=== PATIENT | female | born 1980 | race African-American/Black ===

== ENCOUNTER 2016-08-18 08:29 | Emergency (ER) | payer MEDICAID, OTHER ==
[~2016-08-18] VITALS: Ht 157.5 cm; Wt 68.0 kg
[~2016-08-18 08:29] MED LIST: AMOX875T PO; COMPTAB16 PO; FLUT50SP EACH NARE; HYDR-3533 PO; PRIL40CA PO
[2016-08-18 08:34] VITALS: BP 131/83; PULSE 57; RESP 16; TEMP 98.1; O2SAT 99
[2016-08-18] MEDS ORDERED: EMTRTAB6 PO (08:58)
[2016-08-18] MEDS ORDERED: PROPARACAINE HCL 0.5% OPHT SOLN 15 ML BTL EACH EYE ONE (09:00)
[2016-08-18] MEDS ORDERED: TOBRO RIGHT EYE (09:23)
--- NOTE | 2016-08-18 09:23 | PD ---
HPI Chief Complaint: Eye Problems/Injury Time Seen by Provider: 08:54 Travel History International Travel<30 days: No Contact w/Intl Traveler<30days: No Traveled to known affect area: No History of Present Illness HPI 36-year-old female complains of right eye pain and discharge and redness. Patient states that she woke up this morning with the symptoms. Patient states that the eye pain is mild aching pain. Patient denies any visual change. Patient states that she has tearing from the right eye this morning. Patient denies any coughing congestion fever chills. PFSH Past Medical History Asthma: No Blood Disorders: No Heart Rhythm Problems: No Cancer: No Cardiovascular Problems: No High Cholesterol: No Chemotherapy: No Chest Pain: No Congestive Heart Failure: No COPD: No Diabetes: No Diminished Hearing: No Endocrine: No Gastrointestinal Disorders: No Genitourinary: No Hypertension: No Immune Disorder: Yes (HIV POSITIVE) Implanted Vascular Access Dvce: No Musculoskeletal: No Neurologic: No Psychiatric: No Reproductive: No Respiratory: No Immunizations Current: Yes Radiation Therapy: No Sleep Apnea: No Thyroid Disease: No Tetanus Vaccination: Unknown Influenza Vaccination: No ?: Not Past Surgical History Section: Yes (x 1) Gynecologic Surgery: Yes () Other Surgery: Yes (C SECTION X1) Social History Alcohol Use: No Tobacco Use: No Substance Use: No Allergies-Medications (Allergen,Severity, Reaction): Coded Allergies: No Known Allergies (Verified , 08/18/16) Reported Meds & Prescriptions Reported Meds & Active Scripts Active Tobradex Opth Drops (Tobramycin/Dexamethasone) 0.3-0.1 % Susp 1 Drop RIGHT EYE Q6H Reported Complera (Eqmzpcorexjle-Doxkcshcpkw-Lmeapwsbu Disoprox) 200-25-300 Mg Tab 1 Tab PO HS Review of Systems General / Constitutional: No: Fever Eyes: Positive: Pain, Tearing, No: Visual changes HENT: No: Headaches Cardiovascular: No: Chest Pain or Discomfort Respiratory: No: Shortness of Breath Gastrointestinal: No: Abdominal Pain Genitourinary: No: Dysuria Musculoskeletal: No: Pain Skin: No Rash Neurologic: No: Weakness Psychiatric: No: Depression Endocrine: No: Polydipsia Hematologic/Lymphatic: No: Easy Bruising Physical Exam Narrative GENERAL: Well-nourished, well-developed patient. SKIN: Focused skin assessment warm/dry. HEAD: Normocephalic. EYES: Right conjunctival mild erythematous. Patient has mild right conjunctival edema. Right eye stained with fluoresceins stain shows no uptake. Zana-Pen pressure 15 on the right eye. Neck: Supple. CARDIOVASCULAR: Regular rate and rhythm without murmurs, gallops, or rubs. RESPIRATORY: Breath sounds equal bilaterally. No accessory muscle use. GASTROINTESTINAL: Abdomen soft, non-tender, nondistended. MUSCULOSKELETAL: No cyanosis, or edema. BACK: Nontender without obvious deformity. No CVA tenderness. Data Data Last Documented VS Vital Signs Date Time Temp Pulse Resp B/P Pulse Ox O2 Delivery O2 Flow Rate FiO2 08/18/16 08:49 57 16 08/18/16 08:34 98.1 131/83 99 Orders Proparacaine 0.5% Opth Soln (Alcaine 0.5 (08/18/16 09:00) MDM Medical Decision Making Medical Screen Exam Complete: Yes Emergency Medical Condition: Yes Differential Diagnosis Differential diagnosis including conjunctivitis, corneal abrasion, corneal ulcer , keratitis, iritis uveitis. Narrative Course 36-year-old female with redness and tearing and right eye pain. Diagnosis Primary Impression: Conjunctivitis Qualified Code: B30.9 - Acute viral conjunctivitis of right eye Additional Instructions: Eyedrop as directed. Follow-up with information technology security analyst. Return if worse. Med/Other Pt SpecificInfo: Prescription(s) given Scripts Tobramycin-Dexamethasone Opth Drops (Tobradex Opth Drops)0.3-0.1 % Susp1 Drop RIGHT EYE Q6H #1 BOTTLE Ref 0 Prov:Anant Nolen MD 08/18/16 Disposition: 01 DISCHARGE HOME Condition: Stable Anant Nolen MD Aug 18, 2016 09:23
== END 2016-08-18 09:34 | disposition home or self-care (01) ==
LOC: PHED 08:29
DX: B30.9 Viral conjunctivitis, unspecified (principal); Z21 Asymptomatic human immunodeficiency virus [HIV] infection status
CPT/HCPCS: 99283

== ENCOUNTER 2016-10-05 19:49 | Emergency (ER) | payer MEDICAID, OTHER ==
[~2016-10-05] VITALS: Ht 167.6 cm; Wt 68.5 kg
[~2016-10-05 19:49] MED LIST changes: -AMOX875T PO; -COMPTAB16 PO; +EMTRTAB6 PO; -FLUT50SP EACH NARE; -HYDR-3533 PO; -PRIL40CA PO; +TOBRO RIGHT EYE
[2016-10-05 20:07] VITALS: BP 128/83; PULSE 65; RESP 18; TEMP 98.4; O2SAT 100
[2016-10-05] MEDS ORDERED: DOXY100C PO (20:35)
[2016-10-05] MEDS ORDERED: BACT800T5 PO (20:35)
--- NOTE | 2016-10-05 20:37 | PD ---
HPI Chief Complaint: Skin Problem Time Seen by Provider: 20:15 Travel History International Travel<30 days: No Contact w/Intl Traveler<30days: No Traveled to known affect area: No History of Present Illness HPI 36-year-old female with a history of HIV presents to the emergency room for evaluation of painful, red lesion to her left lower extremity. Patient states she first noticed it 3 days ago as a small blister. She thought she may have gotten bitten by a bug. It increased in size and became more painful until it popped. After popping, the pain went away. Now it only hurts when she touches it. She has not been taking anything or applying anything to the area. Viral load is undetectable. She does not know her CD4 count. Denies fever, chills, nausea, and vomiting. PFSH Past Medical History Asthma: No Blood Disorders: No Heart Rhythm Problems: No Cancer: No Cardiovascular Problems: No High Cholesterol: No Chemotherapy: No Chest Pain: No Congestive Heart Failure: No COPD: No Diabetes: No Diminished Hearing: No Endocrine: No Gastrointestinal Disorders: No Genitourinary: No Hypertension: No Immune Disorder: Yes (HIV POSITIVE) Implanted Vascular Access Dvce: No Musculoskeletal: No Neurologic: No Psychiatric: No Reproductive: No Respiratory: No Immunizations Current: Yes Radiation Therapy: No Sleep Apnea: No Thyroid Disease: No Tetanus Vaccination: > 5 Years Influenza Vaccination: No ?: Not Past Surgical History Section: Yes (x 1) Gynecologic Surgery: Yes () Other Surgery: Yes (C SECTION X1) Social History Alcohol Use: No Tobacco Use: No Substance Use: No Allergies-Medications (Allergen,Severity, Reaction): Coded Allergies: No Known Allergies (Verified , 10/05/16) Reported Meds & Prescriptions Reported Meds & Active Scripts Active Bactrim DS (Sulfamethoxazole-Trimethoprim) 800-160 Mg Tab 1 Tab PO BID Doxycycline Hyclate 100 Mg Cap 100 Mg PO BID 10 Days Reported Complera (Fbgxaoctbltnf-Bynmmcltryg-Uphgjzoft Disoprox) 200-25-300 Mg Tab 1 Tab PO HS Review of Systems Except as stated in HPI: all other systems reviewed are Neg Physical Exam Narrative GENERAL: Well-nourished, well-developed female in no acute distress. Afebrile. Ambulatory. SKIN: Focused skin assessment warm/dry. There is an indurated area in the left lower extremity which measures about 1 cm in diameter. It is fluctuant with purulent drainage. There is a zone of inflammation measuring 4 x 6 cm around it but no lymphangitis. It is extremely tender to palpation. HEAD: Normocephalic. EYES: No scleral icterus. No injection or drainage. NECK: Supple, trachea midline. No JVD or lymphadenopathy. CARDIOVASCULAR: Regular rate and rhythm without murmurs, gallops, or rubs. RESPIRATORY: Breath sounds equal bilaterally. No accessory muscle use. PSYCHIATRIC: No delusional thought processes. No hallucinations. Data Data Last Documented VS Vital Signs Date Time Temp Pulse Resp B/P Pulse Ox O2 Delivery O2 Flow Rate FiO2 10/05/16 20:12 10/05/16 20:07 98.4 65 18 100 Orders Wound Culture And Gram Stain (10/05/16 20:20) [facility] Medical Decision Making Medical Screen Exam Complete: Yes Emergency Medical Condition: Yes Medical Record Reviewed: Yes Differential Diagnosis Abscess versus cellulitis versus bug bite versus folliculitis Narrative Course 36-year-old female with history of HIV (undetectable viral load, unknown CD4 count) presents to the emergency room for evaluation of painful red lesion to her left lower extremity has been present for the past 3 days. Patient believes it started off as a bug bite. It was a blister and popped. Since popping, has become less painful. It is draining purulent discharge. Physical exam reveals a 1 cm induration with pointing and drainage that is extremely tender to palpation. There is no surrounding lymphangitis. Left lower extremity is neurovascularly 2+ dorsalis pedis pulse. It is slightly more edematous than the right lower extremity. No calf tenderness. Wound culture obtained. I spoke to my attending physician, , and he recommends Bactrim and doxycycline as patient is immunocompromised. She'll be discharged with prescriptions and told to follow up with a primary care physician and return for worsening symptoms. She understands and agrees to plan. Diagnosis Primary Impression: Left leg cellulitis Referrals: Primary Care Physician Patient Instructions: Cellulitis (ED), General Instructions Additional Instructions: Rest and drink plenty of fluids. Take Bactrim as directed, until gone. Take doxycycline as directed, until gone. Follow up with a primary care physician. Return to emergency room for worsening symptoms, as discussed. Med/Other Pt SpecificInfo: Prescription(s) given Scripts Sulfamethoxazole-Trimethoprim (Bactrim DS)800-160 Mg Tab1 Tab PO BID #20 TAB Ref 0 Prov:Spike Morrison MD 10/05/16 Doxycycline Hyclate 100 Mg [id number] Mg PO BID 10 Days Ref 0 Prov:Spike Morrison MD 10/05/16 Disposition: 01 DISCHARGE HOME Condition: Stable Sandy Jamison October 05, 2016 20:36
== END 2016-10-05 20:53 | disposition home or self-care (01) ==
LOC: PHEFT 19:49
DX: L03.116 Cellulitis of left lower limb (principal); B20 Human immunodeficiency virus [HIV] disease
CPT/HCPCS: 86403; 87070; 87186; 87205; 99284